=== PATIENT | male | born 1950 | race Caucasian/White ===

== ENCOUNTER → 2023-01-03 | Outpatient (CLI) | payer MEDICARE, OTHER ==
[~2023-01-03] MED LIST: ASPIR 8181 MG PO; ATORVASTATIN CA40 MG PO; CLOPIDOGREL75 MG PO; METOPROLOL SUCC50 MG PO; NITROGLYCERIN0.4 MG SL; NORCO 7.5-3251 EACH PO
== END ==
LOC: MRI 10:14
PROVIDERS: ATTEND Family Medicine
DX: M47.812 Spondylosis without myelopathy or radiculopathy, cervical region (principal); Z98.1 Arthrodesis status
CPT/HCPCS: 72141

== ENCOUNTER 2023-01-30 10:59 | Outpatient (RCR) | payer MEDICARE | END 2023-02-02 | LOC: PT 10:59 | PROVIDERS: ATTEND Neurological Surgery | DX: M50.120 Mid-cervical disc disorder, unspecified level (principal); M62.81 Muscle weakness (generalized) ==

== ENCOUNTER → 2023-07-04 | Outpatient (REF) | payer MEDICARE, OTHER | LOC: CT 14:04 | PROVIDERS: ATTEND Family Medicine | DX: R55 Syncope and collapse (principal) | CPT/HCPCS: 70450 ==

== ENCOUNTER 2024-01-07 08:40 | Outpatient (RCR) | payer MEDICARE, OTHER | END 2024-02-03 | LOC: PT 08:40 | PROVIDERS: ATTEND Orthopaedic Surgery | DX: M75.101 Unspecified rotator cuff tear or rupture of right shoulder, not specified as traumatic (principal) ==

== ENCOUNTER 2025-04-19 15:53 | Emergency (ER) | payer MEDICARE, OTHER ==
[~2025-04-19] VITALS: Ht 177.8 cm; Wt 88.5 kg
[2025-04-19] MEDS ORDERED: LIDOCAINE 1% 10 ML MULTIDOSE VIAL IJ ONE (16:02)
[2025-04-19 16:05] VITALS: PULSE 63; RESP 18; TEMP 98.5
[2025-04-19] MEDS ORDERED: CLEOCIN HCL300 MG PO (16:12)
[2025-04-19 16:22] VITALS: BP 154/78; PULSE 64; RESP 17; O2SAT 100
== END 2025-04-19 16:24 | disposition home or self-care (01) ==
LOC: ER 15:58
DX: S91.341A Puncture wound with foreign body, right foot, initial encounter (principal); W26.8XXA Contact with other sharp object(s), not elsewhere classified, initial encounter; Y92.89 Other specified places as the place of occurrence of the external cause; I10 Essential (primary) hypertension
CPT/HCPCS: 99282